=== PATIENT | male | born 1995 | race Caucasian/White ===

== ENCOUNTER 2020-01-20 10:56 | Emergency (ER) | payer OTHER ==
[~2020-01-20] VITALS: Ht 177.8 cm; Wt 68.8 kg
[2020-01-20 10:56] VITALS: BP 142/66
--- NOTE | 2020-01-20 11:29 | REP ---
Clinical: Pain. Injury. Technique: AP, lateral, bilateral oblique views of the right ankle. Findings: Moderate lateral swelling. No acute fracture or dislocation. Joint spaces and ankle mortise are intact. No subcutaneous emphysema or foreign body. Impression: Moderate swelling. No fracture. Electronically Signed by Vinay Barragan MD 01/20/2020 11:20 A
[2020-01-20] MEDS ORDERED: IBUPROFEN 800 MG TAB PO ONE (11:30)
== END 2020-01-20 11:40 | disposition home or self-care (01) ==
LOC: M ED 10:56
DX: S93.401A Sprain of unspecified ligament of right ankle, initial encounter (principal); V86.56XA Driver of dirt bike or motor/cross bike injured in nontraffic accident, initial encounter; X50.1XXA Overexertion from prolonged static or awkward postures, initial encounter; Y92.89 Other specified places as the place of occurrence of the external cause

== ENCOUNTER 2022-07-02 18:32 | Emergency (ER) | payer OTHER, SELFPAY ==
[~2022-07-02] VITALS: Ht 177.8 cm; Wt 76.2 kg
[2022-07-02 18:32] VITALS: BP 147/69
[2022-07-02] MEDS ORDERED: SERT-141 PO ×2 (18:38→20:42)
[2022-07-02] MEDS ORDERED: MIRT1TAB PO ×2 (18:38→20:42)
== END 2022-07-02 20:51 | disposition home or self-care (01) ==
LOC: M ED 18:32
DX: Z76.0 Encounter for issue of repeat prescription (principal); F33.9 Major depressive disorder, recurrent, unspecified; F41.9 Anxiety disorder, unspecified; Z79.899 Other long term (current) drug therapy